=== PATIENT | female | born 1945 | race Caucasian/White ===

== ENCOUNTER 2022-06-01 14:35 | Outpatient (CLI) | payer MEDICARE, BC, SELFPAY ==
[2022-06-01 10:50] LABS: Vitamin D 25 Hydroxy* 44 ng/mL (30-80)
== END 2022-06-01 14:36 | disposition home or self-care (01) ==
PROVIDERS: PCP Internal Medicine; Visit Provider Internal Medicine
DX: E03.9 Hypothyroidism, unspecified (principal); E55.9 Vitamin D deficiency, unspecified
CPT/HCPCS: 82306; 84443

== ENCOUNTER 2022-07-03 11:00 | Outpatient (CLI) | payer MEDICARE, BC, SELFPAY ==
--- OUTSIDE RECORDS SUMMARY | 2022-07-03 11:04 | XMS_ITS | Clinical Summary ---
:1945 Author Organization [facility] [place] [address] Care Team Providers Name Role Phone Falguni Baptiste MD Primary Care Provider Allergies Active Allergy Reactions Severity Noted Date Comments Clindamycin Nausea Only, Nausea Low 03/29/2009 And Vomiting Erythromycin Nausea Only Low 03/29/2009 Other reaction( s): Nausea Morphine Nausea Only High 03/29/2009 Other reaction( s): Nausea & Vomiti ng Penicillins *Unknown - Childhood 03/29/2009 Reacted as child. Rxn Penicillin V *Unknown - Childhood Low 05/03/2021 Rxn Sulfa (Sulfonamide Other - Describe In Low 03/29/2009 Re d all over body. Antibiotics) Comment Field Other reaction (s): Red Skin & Itch ing Tramadol Nausea Only High 03/29/2009 Other reaction( s): Nausea & Vomiti ng Medications Medication Sig Dispensed Refills Start Date End Date Status METROGEL 1 % 0 03/29/2009 Active TOPICAL CALCIUM WITH 0 03/29/2009 Active VITAMIN D 600 MG-400 UNIT TAB SUMATRIPTAN 100 MG As needed 0 03/29/2009 Active TAB MULTIPLE VITAMIN daily 0 03/29/2009 Ac tive TAB FLUoxetine 0 07/18/2021 Active (PROZAC) 20 mg capsule levothyroxine 0 08/07/2021 Activ e (SYNTHROID) 50 mcg tablet zolpidem (AMBIEN) 0 07/20/2021 A ctive 5 mg tablet calcium Daily 0 Active carbonate/vitamin D2 (CALCIUM + VITAMIN D ORAL) albuterol HFA 0 04/26/2021 Activ e (PRO-AIR; VENTOLIN; PROVENTIL) 90 mcg/actuation inhaler betamethasone APPLIED TO 0 12/06/2021 Acti ve valerate HAIRLESS (VALISONE) 0.1 % VULVAR SKIN cream NEEDED gabapentin Take 1 30 Capsule 11 06/12/2022 Active (NEURONTIN) 300 mg Capsule (300 capsuleIndications mg) by mouth : Lumbar 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 With food. gabapentin Take 1 30 Capsule 2 02/01/2022 Discont inued (NEURONTIN) 300 mg Capsule (300 2 (Reorder capsuleIndications mg) by mouth (E-cancel not : Lumbar facet at bedtime. sen t)) arthropathy meloxicam 15 mg Take 1 Tablet 30 Tablet 2 02/01/2022 Discontinued tabletIndications: (15 mg) by 2 (Reorder Lumbar facet mouth once (E-can candice not arthropathy daily. With sent)) food. Active Problems Problem Noted Date Sensorineural hearing loss, unilateral 04/21/2009 Encounters Date Type Specialty Care Team Description 06/09/2022 Telephone Alexander Nick, Letter 04/20/2022 Office Visit Alexander Nick, Musculo skeletal Problem (Follow up back pain ) 04/20/2022 Travel 04/14/2022 Refill Alexander Nick, Refill Request (Meloxicam) from Last 3 Months Social History Tobacco Use Types Packs/Day Years Used Date Never Smoker Smokeless Tobacco: Never Used Alcohol Use Standard Drinks/Week Comments Yes 0 (1 standard drink = 0.6 oz pure alcoho l) occas Sex Assigned at Date Recorded Not on file Obstetrics History Last Filed Vital Signs Vital Sign Reading Time Taken Comments Blood Pressure 126/72 04/20/2022 10:30 AM CDT Pulse 73 04/20/2022 10:30 AM CDT Temperature 36.7 ??C (98 ??F) 04/20/2022 10:30 AM CDT Respiratory Rate 14 05/03/2016 8:33 AM CDT Oxygen Saturation 98% 04/20/2022 10:30 AM CDT Inhaled Oxygen Concentration - - Weight 64.8 kg (142 lb 12.8 oz) 02/01/2022 2:07 PM CDT Height - - Body Mass Index - - Plan of Treatment Health Maintenance Due Date Last Done Comments Tdap 1954 Depression screening for age 12+ 1955 BMI (ht and wt on same day) for 1961 age 18+ Hepatitis C screening for age 0904/11/1961 18-79 Tetanus booster 1963 Zoster (shingles) series for age 0904/11/1993 50+ (1 of 2) DEXA/DXA scan for age 65+ 2008 Medicare Wellness for age 65+ 2008 Pneumococcal series for age 65+ (1 2008 - PCV) Influenza for age 65+ 03/30/2022 COVID-19 vaccine series Completed 04/17/2022, 11/15/2021, 05/05/2021, Additional history exists Results Not on filefrom Last 3 Months Insurance Payer Benefit Plan / Subscriber ID Effective Dates Phone Addre ss Type Group MEDICARE PART B MEDICARE PART B [id number] 2008-Presen ATTN: CLAIMS - HB USE ONLY HB ONLY t [address] [place] [address] MEDICARE PART A MEDICARE PART A [id number] 2008-Presen ATTN: CLAIMS - HB USE ONLY HB ONLY t [address] [place] [address] BLUE CROSS MR BLUE CROSS [id number] 2016-Presen [address] [address] [place], [place] ONLY [id number] BLUE CROSS BLUE CROSS [id number] 2016-[place]en [address] [address] [place], [place] [id number] Care Teams Motor Tester Relationship Specialty Start Date End Date Falguni Baptiste MD PCP - General 04/02/09
--- NOTE | 2022-07-03 11:30 | CRLHL7_ITS ---
For Patients: As a result of the Century Cures Act, medical imaging exams and procedure reports are released immediately into your electronic medical record. You may view this report before your referring provider. If you have questions, please contact your health care provider. BILATERAL SCREENING MAMMOGRAM WITH COMPUTER-AIDED DETECTION AND TOMOSYNTHESIS TECHNIQUE: CC and MLO views were obtained. These mammographic images have been obtained using full-field digital technique. These mammographic images were interpreted with the benefit of computer-aided detection. Breast tomosynthesis was used in this interpretation. COMPARISON FILM: 05/12/21, 04/06/20, 08/02/18. FINDINGS: The breasts are heterogeneously dense, which may obscure small masses. IMPRESSION: There is no radiographic evidence for malignancy. ASSESSMENT: BI-RADS Category 1: Negative RECOMMENDATION: Routine screening mammogram in 1 year. A lay language report of this examination will be provided to the patient. DRAKE HERNANDEZ M.D. Diagnostic Radiologist [email or web address] Transcribed: 07/04/2022, 6:[address]/Dictated by: Drake Hernandez MD @ 07/04/2022 8:34:00 AM (Electronically Signed)
== END 2022-07-03 11:01 | disposition home or self-care (01) ==
LOC: MAMMO 11:02
PROVIDERS: PCP Internal Medicine; Visit Provider Internal Medicine
DX: Z12.31 Encounter for screening mammogram for malignant neoplasm of breast (principal); R92.2 Inconclusive mammogram
CPT/HCPCS: 77063; 77067

== ENCOUNTER 2022-09-15 13:16 | Outpatient (CLI) | payer MEDICARE, BC, SELFPAY ==
--- NOTE | 2022-09-15 13:45 | MR_ITS ---
[address] [address] Phone:?[phone] Fax:?[phone] Referring Physician Information: Jarrell Wilkes M.D. [address] [facility] [address] Phone:?[phone] Fax:?[phone] Patient:?Veronica Aparicio D.O.B:?1945 Sex:?Female Phone:?[phone] [facility] MRN:?[id number] Exam Date:?09/15/2022 ? EXAM: MRI OF THE RIGHT SHOULDER CLINICAL INFORMATION: The patient is a 77-year-old with right shoulder pain. Evaluate for rotator cuff tear. PRIOR SURGERY: The patient has a history of prior surgery to the region. COMPARISON STUDIES: Comparison is made to the prior MRI examination dated 05/27/2002. TECHNICAL INFORMATION: Using a 1.5T MR scanner and a localizing shoulder surface coil: 3.0 mm?coronal obliques: PD, T2, STIR 3.0 mm?sagittal obliques: PD, T2 3.0 mm?axials: PD, T2 FINDINGS: Articular/Extraarticular collections: Effusion: Mild. Subacromial/subdeltoid: Minimal fluid is seen within the subacromial/subdeltoid bursa. Subcoracoid: No evidence for bursitis. Osseous structures: Proximal humerus: Imaging of the proximal humerus demonstrates postsurgical changes, in keeping with prior rotator cuff repair and prior biceps tenodesis. No definite evidence for fracture of the greater or lesser tuberosity regions can be seen. There is no evidence for Hill-Sachs or reverse Hill-Sachs lesion. Benign-appearing cystic changes within the greater tuberosity region are noted on coronal series 4 image 14. Glenoid: No acute bony abnormality of the glenoid fossa or glenoid neck can be seen. Acromioclavicular joint: There is evidence for prior acromioplasty and distal clavicular resection. Coracoacromial arch: Acromion morphology: Type I. No evidence for os acromiale. Acromiohumeral space: Moderately narrowed. Coracohumeral space: Within normal limits. Rotator cuff and deltoid: Supraspinatus: Tendinosis and/or postsurgical changes of the supraspinatus and be seen. There is no well-defined full-thickness tearing or retraction. No atrophic changes of the supraspinatus muscle belly are identified. Infraspinatus: Tendinosis and/or postsurgical changes of the infraspinatus can be seen. There is no evidence for full or partial-thickness tearing. No atrophic changes of the infraspinatus muscle belly are present. Teres minor: No evidence for tendinosis, tearing, or associated muscle belly atrophy. Subscapularis: There is attenuation of the subscapularis, in keeping with chronic high-grade partial-thickness tearing. Atrophic changes of the subscapularis muscle belly are noted. Deltoid: No evidence for strain or tearing. Biceps tendon: Evidence for prior biceps tenodesis can be seen. The biceps tendon appears intact distal to the tenodesis site. Glenohumeral joint and labrum: Articular Cartilage: Chondromalacia and chondral thinning can be seen along the articular surfaces of the glenohumeral articulation. No definite osteoarthritic changes are present. Labrum: The anterior, posterior, superior, and inferior portions of the labrum appear intact. No evidence for paralabral ganglion cyst formation can be seen. Capsular Soft Tissues: No definite capsular abnormalities of the glenohumeral joint are seen. No evidence for capsular tearing is present and there are no MR signs of adhesive capsulitis. CONCLUSION: 1. Tendinosis and/or postsurgical changes of the supraspinatus and infraspinatus tendons. No definite full-thickness tearing or retraction can be seen. 2. Attenuation of the subscapularis tendon, in keeping with chronic high-grade partial-thickness tearing. Associated muscle belly atrophy can be seen. 3. Status post biceps tenodesis. 4. Evidence for prior acromioplasty and distal clavicular resection can be seen. The acromiohumeral distance is moderately narrowed. 5. Chondromalacia and chondral thinning along the articular surfaces of the glenohumeral articulation. 6. Glenohumeral joint effusion. AEC Electronically signed on 09/15/2022 3:23:00 PM by Yayo Green M.D.
== END 2022-09-15 13:17 | disposition home or self-care (01) ==
LOC: MRI 13:17
PROVIDERS: PCP Internal Medicine; Visit Provider Orthopaedic Surgery
DX: M75.101 Unspecified rotator cuff tear or rupture of right shoulder, not specified as traumatic (principal); M25.511 Pain in right shoulder; M94.211 Chondromalacia, right shoulder; M25.411 Effusion, right shoulder
CPT/HCPCS: 73221

== ENCOUNTER 2023-06-07 08:29 | Outpatient (CLI) | payer MEDICARE, BC, SELFPAY | END 2023-06-07 08:30 | disposition home or self-care (01) | LOC: NFLDREF 06-08 11:57 | PROVIDERS: PCP Internal Medicine; Referring Provider Internal Medicine; Visit Provider Internal Medicine | DX: Z00.00 Encounter for general adult medical examination without abnormal findings (principal); E03.9 Hypothyroidism, unspecified; M85.80 Other specified disorders of bone density and structure, unspecified site; G93.5 Compression of brain; I35.1 Nonrheumatic aortic (valve) insufficiency | CPT/HCPCS: 82306; 84443 ==

== ENCOUNTER 2023-08-06 12:32 | Outpatient (CLI) | payer MEDICARE, BC, SELFPAY ==
--- OUTSIDE RECORDS SUMMARY | 2023-08-06 12:36 | XMS_ITS | Clinical Summary ---
Author Name Unknown Organization [facility] Address [place], [place] [address] Care Team Providers Care Spar Machine Operator Helper Name Role Phone Falguni Baptiste MD Primary Care Provider [phone]- [phone] Allergies Active Allergy Reactions Criticality Noted Date Comments Clindamycin Nausea Only,Nausea And Vomiting Low 03/29/2009 Erythromycin Nausea Only Low 03/29/2009 Other reaction(s): Nausea Morphine Nausea Only High 03/29/2009 Other reaction(s): Nausea & Vomiting Penicillins *Unknown - Childhood Rxn 03/29/2009 Reacted as child. Penicillin V *Unknown - Childhood Rxn Low 05/03/2021 Sulfa (Sulfonamide Antibiotics) Other - Describe In Comment Field Low 03/29/2009 Red all over body. Other reaction(s): Red Skin & Itching Tramadol Nausea Only High 03/29/2009 Other reaction(s): Nausea & Vomiting Medications Medication Sig Dispensed Refills Start Date End Date Status METROGEL 1 % TOPICAL 0 03/29/2009 Acti ve CALCIUM WITH VITAMIN D 600 MG-400 UNIT TAB 0 03/29/2009 Active SUMATRIPTAN 100 MG TAB As needed 0 03/29/2009 Active MULTIPLE VITAMIN TAB daily 0 03/29/2009 Acti ve FLUoxetine (PROZAC) 20 mg capsule 0 07/18/2021 Active levothyroxine (SYNTHROID) 50 mcg tablet 0 08/07/2021 Active zolpidem (AMBIEN) 5 mg tablet 0 07/20/2021 Active calcium carbonate/vitamin D2 (CALCIUM + VITAMIN D ORAL) Daily 0 Active albuterol HFA (PRO-AIR; VENTOLIN; PROVENTIL) 90 mcg/actuation inhaler 0 04/26/2021 Active betamethasone valerate (VALISONE) 0.1 % cream APPLIED TO HAIRLESS VULVAR SKIN NEEDED 0 12/06/2021 Active gabapentin (NEURONTIN) 300 mg capsuleIndications:L umbar facet arthropathy Take 1 Capsule (300 mg) by mouth at bedtime. 60 Capsule 5 01/18/2023 Active meloxicam 15 mg tabletIndications:Sindy mbar facet arthropathy TAKE 1 TABLET (15 MG) BY MOUTH ONCE DAILY. WITH FOOD. 30 Tablet 2 02/22/2023 Active Active Problems Problem Noted Date Diagnosed Date Sensorineural hearing loss, unilateral 9 Social History Tobacco Use Types Packs/Day Years Used Date Smoking Tobacco: Never Smokeless Tobacco: Never Tobacco Cessation:Counseling Given: Yes Alcohol Use Standard Drinks/Week Comments Yes 0 (1 standard drink = 0.6 oz pur e alcohol) occas Social Connections Answer Date Recorded Frequency of Communication with Friends and Fami ly Not on file 08/08/2021 Financial Resource Strain Answer Date R ecorded Difficulty of Paying Living Expenses Not on file 08/08/2021 Difficulty of Paying Living Expenses Not on file 08/08/2021 Sex and Gender Information Value Date Recorded Sex Assigned at Not on file Gender Identity Not on file Sexual Orientation Not on file Obstetrics History Last Filed Vital Signs Vital Sign Reading Time Taken Comments Blood Pressure 127/70 01/18/2023 11:16 AM CDT Pulse 72 01/18/2023 11:16 AM CDT Temperature 36.8 ??C (98.2 ??F) 01/18/2023 11:16 AM C DT Respiratory Rate 14 05/03/2016 8:33 AM CDT Oxygen Saturation 96% 01/18/2023 11:16 AM CDT Inhaled Oxygen Concentration - - Weight 67.6 kg (149 lb) 01/18/2023 11:16 AM CDT shoes on Height - - Body Mass Index - - Plan of Treatment Upcoming Encounters Date Type Department Care Team (Late st Contact Info) Description 08/06/2023 1:00 PM MAPPING TECHNICIAN Orders Only [facility] [address] [place] [address] Health Maintenance Due Date Last Done Comments Tdap 1954 Depression screening for age 12+ 1955 BMI (ht and wt on same day) for age 18+ 1961 Tetanus booster 1963 Zoster (shingles) series for age 50+ (1 of 2) 1993 DEXA/DXA scan for age 65+ 2008 Medicare Wellness for age 65+ 2008 Pneumococcal series for age 65+ (1 of 1 - PCV) 2008 Influenza for age 65+ 03/30/2023 COVID-19 vaccine series (2022-24 season) 2023 02/27/2023, 04/17/2022, 11/15/2021, Additional history exists Care Teams Spar Machine Operator Helper Relationship Specialty Start Date End Date Falguni Baptiste MD PCP - General 04/02/09
== END 2023-08-06 12:33 | disposition home or self-care (01) ==
LOC: RAD 12:34
PROVIDERS: PCP Internal Medicine; Visit Provider Internal Medicine
DX: I35.1 Nonrheumatic aortic (valve) insufficiency (principal); I51.7 Cardiomegaly
CPT/HCPCS: 93306

== ENCOUNTER 2023-09-06 12:45 | Outpatient (CLI) | payer MEDICARE, BC, SELFPAY ==
--- OUTSIDE RECORDS SUMMARY | 2023-09-06 12:47 | XMS_ITS | Clinical Summary ---
Author Name Unknown Organization [facility] Address [place], [place] [address] Care Team Providers Care Fly Maker Name Role Phone Falguni Baptiste MD Primary Care Provider [phone]- [phone] Allergies Active Allergy Reactions Criticality Noted Date [...] Diagnosed Date Sensorineural hearing loss, unilateral 9 Encounters Date Type Department Care Team Description 08/06/2023 1:00 PM AIRCRAFT INSTRUMENT REPAIRER Orders Only [facility] & [address] [address] 2 scans: (2-Ord) ECHO TTE COMPLETE WO CONTRAST ([id number]) 08/06/2023 Travel from Last 3 Months Social History Tobacco [...] for age 65+ 03/30/2023 COVID-19 vaccine series (2022- season) 2023 02/27/2023, 04/17/2022, 11/15/2021, Additional history exists Procedures Procedure Name Priority Date/Time Associated Diagnosis Comments ECHO TTE COMPLETE WO CONTRAST Routine 08/06/2023 1:52 PM AIRCRAFT INSTRUMENT REPAIRER Nonrheumatic aortic (valve) insufficiency from Last 3 Months Results * ECHO TTE COMPLETE WO CONTRAST (08/06/2023 1:52 PM AIRCRAFT INSTRUMENT REPAIRER) AORTIC VALVE MEAN PG 6 mmHg EJECTION FRACTION 75 % PEAK TR VELOCITY 2.3 m/s LVEDD 4.4 cm EJECTION FRACTION 65 - 70% Anatomical Region Laterality Modality Ultrasound 08/06/2023 1:09 PM AIRCRAFT INSTRUMENT REPAIRER Narrative 08/06/2023 4:39 PM AIRCRAFT INSTRUMENT REPAIRER ECHOCARDIOGRAM VERONICA Sandra BERNARD ? Accession#: ?? [id number] : ?1945 78 years Study Date: ?? 08/06/2023 1:09:01 PM Gender: F ?BP: ? 127/70 mmHg Height: 157.00 cm ?BSA: ?1.69 m? ? ? Weight: 68.00 kg ? Tech: ? MTS ? Referring MD: FALGUNI BAPTISTE Site: ? [facility] Reading Location: MOBILE OP Patient Location: Outpatient. Procedure: 2D, Color Doppler and Spectral Doppler. Indication for study: Nonrheumatic aortic (valve) insufficiency Cardiac Rhythm: Regular.Study quality: Good. Final Impressions: 1. Normal LV size, normal global systolic function with an estimated EF of 65 - 70%. 2. Right ventricular cavity size is normal, global systolic RV function is normal. 3. Mildly enlarged left atrium. 4. The aortic valve is trileaflet and sclerotic, no stenosis and mild regurgitation. Comparison Compared to prior exam of 04/09/2020, there has been no significant change. Chamber Sizes and Function Normal left ventricular size, borderline wall thickness, normal global systolic function with an estimated EF of 65 - 70%. Left atrial size is mildly enlarged. Left atrial pressure is normal. Right ventricular cavity size is normal, global systolic RV function is normal. RV wall thickness is normal. The right atrium is normal. Right atrial volume index is 18 ml/m? ? ?. Right atrial area is 12 cm? ? ?. The pulmonary artery is of normal size and origin. The sinus of Valsalva is normal sized. The ascending aorta is normal sized. Valves, RV Pressures and Diastolic Function The aortic valve is trileaflet and sclerotic, no stenosis and mild regurgitation. The mitral valve is normal in structure, trace mitral regurgitation. Indeterminate pattern of LV diastolic filling. The tricuspid valve is normal in structure. Tricuspid regurgitation is trace regurgitation. The tricuspid regurgitant velocity is 2.3 m/s, the estimated right ventricular systolic pressure is 21 mmHg plus right atrial pressure. The pulmonic valve is normal. No pulmonary regurgitation. Masses, Effusion, Shunts There is no pericardial effusion. The inferior vena cava is normal sized, respiratory size variation greater than 50%. No left to right shunting was detected by limited color flow Doppler interrogation of the interatrial septum. MEASUREMENTS AND CALCULATIONS 2-D Measurements and LV Function: LVID (d) 4.4 cm LV FS% (2D) ?? 48 % LVID (s) 2.3 cm LVOT diameter 2.1 cm IVS (d) ??1.1 cm HR ?67 bpm LVPW (d) 1.1 cm LA Vol index ??36 ml/m2 Ao Sinus 3.1 cm RA Vol index ??18 ml/m2 Asc Ao ?? 3.8 cm RA area ? 12 cm? ? ? LA ? 4.4 cm RV Max 4C (d) 3.4 cm Diastology: Mitral ?Tissue Doppler ?Pulmonary veins E Peak 0.6 m/s ??e', Septum ? 0.05 m/s Pulm s ?74.4 cm/s A Peak 1.1 m/s ??e', Lateral ?0.07 m/s Pulm d ?35.0 cm/s E/A ?0.6 ?E/e' Average ?? 10.63 ?Pulm s/d ratio ??2.13 DT ? 233 msec Aortic Valve: Vmax ? 1.6 m/s ??FARHAD (V) ?? 2.38 cm? AI P 1/2 703 msec VTI ?0.41 m ?? FARHAD (I) ?? 2.19 cm? ? ? LVOT V max 1.1 m/s ??Max PG ?11 mmHg LVOT VTI ?? 0.25 m ?? Mean PG ?? 6 mmHg SV ? 89 ml ?Dim Index 0.62 SV index ?? 53 ml/m? ? ? CO ?6.0 l/min ?CI ?3.5 l/min/m? ? ? Mitral Valve: MVA ?3.3 cm? ? ? MV P 1/2 68 msec Tricuspid Valve and estimated PA pressures: TR Vmax 2.3 m/s TAPSE 2.1 cm TR maxG 21 mmHg . This study was interpreted by an [facility] accredited facility. CC: HIM (med records) [facility]. ??Final ?? Procedure Note Nikolas Roca MD - 08/06/2023 ECHOCARDIOGRAM VERONICA APARICIO : 1945 78 years Study Date: 08/06/2023 1:09:01 PM Gender: F BP: 127/70 mmHg Height: 157.00 cm BSA: 1.69 m? ? ? Weight: 68.00 kg Tech: [facility] Referring MD: FALGUNI BAPTISTE Site: [facility] Reading Location: MOBILE OP Patient Location: Outpatient. Procedure: 2D, Color Doppler and Spectral Doppler. Indication for study: Nonrheumatic aortic (valve) insufficiency Cardiac Rhythm: Regular.Study quality: Good. Final Impressions: 1. Normal LV size, normal global systolic function with an estimated EFof 65 - 70%. 2. Right ventricular cavity size is normal, global systolic RV functionis normal. 3. Mildly enlarged left atrium. 4. The aortic valve is trileaflet and sclerotic, no stenosis and mildregurgitation. Comparison Compared to prior exam of 04/09/2020, there has been no significantchange. Chamber Sizes and Function Normal left ventricular size, borderline wall thickness, normal globalsystolic function with an estimated EF of 65 - 70%. Left atrial size ismildly enlarged. Left atrial pressure is normal. Right ventricular cavitysize is normal, global systolic RV function is normal. RV wall thicknessis normal. The right atrium is normal. Right atrial volume index is 18ml/m? ? ?. Right atrial area is 12 cm? ? ?. The pulmonary artery is of normalsize and origin. The sinus of Valsalva is normal sized. The ascendingaorta is normal sized. Valves, RV Pressures and Diastolic Function The aortic valve is trileaflet and sclerotic, no stenosis and mildregurgitation. The mitral valve is normal in structure, trace mitralregurgitation. Indeterminate pattern of LV diastolic filling. Thetricuspid valve is normal in structure. Tricuspid regurgitation is traceregurgitation. The tricuspid regurgitant velocity is 2.3 m/s, theestimated right ventricular systolic pressure is 21 mmHg plus right atrialpressure. The pulmonic valve is normal. No pulmonary regurgitation. Masses, Effusion, Shunts There is no pericardial effusion. The inferior vena cava is normal sized,respiratory size variation greater than 50%. No left to right shunting wasdetected by limited color flow Doppler interrogation of the interatrialseptum. MEASUREMENTS AND CALCULATIONS 2-D Measurements and LV Function: LVID (d) 4.4 cm LV FS% (2D) 48 % LVID (s) 2.3 cm LVOT diameter 2.1 cm IVS (d) 1.1 cm HR 67 bpm LVPW (d) 1.1 cm LA Vol index 36 ml/m2 Ao Sinus 3.1 cm RA Vol index 18 ml/m2 Asc Ao 3.8 cm RA area 12 cm? ? ? LA 4.4 cm RV Max 4C (d) 3.4 cm Diastology: Mitral Tissue Doppler Pulmonary veins E Peak 0.6 m/s e', Septum 0.05 m/s Pulm s 74.4 cm/s A Peak 1.1 m/s e', Lateral 0.07 m/s Pulm d 35.0 cm/s E/A 0.6 E/e' Average 10.63 Pulm s/d ratio 2.13 DT 233 msec Aortic Valve: Vmax 1.6 m/s FARHAD (V) 2.38 cm? ? ? AI P 1/2 703 msec VTI 0.41 m FARHAD (I) 2.19 cm? ? ? LVOT V max 1.1 m/s Max PG 11 mmHg LVOT VTI 0.25 m Mean PG 6 mmHg SV 89 ml Dim Index 0.62 SV index 53 ml/m? ? ? CO 6.0 l/min CI 3.5 l/min/m? ? ? Mitral Valve: MVA 3.3 cm? ? ? MV P 1/2 68 msec Tricuspid Valve and estimated PA pressures: TR Vmax 2.3 m/s TAPSE 2.1 cm TR maxG 21 mmHg . This study was interpreted by an [facility] accredited facility. CC: [facility] ([facility]) [facility]. Final Falguni Baptiste MD ECHO ORD from Last 3 Months Care Teams Fly Maker Relationship Specialty Start Date End Date Falguni Baptiste MD PCP - General 04/02/09
--- NOTE | 2023-09-06 13:20 | CRLHL7_ITS ---
For Patients: As a result of the Century Cures Act, medical imaging exams and procedure reports are released immediately into your electronic medical record. You may view this report before your referring provider. If you have questions, please contact your health care provider. BILATERAL SCREENING MAMMOGRAM WITH COMPUTER-AIDED DETECTION AND TOMOSYNTHESIS TECHNIQUE: CC and MLO views were obtained. These mammographic images have been obtained using full-field digital technique. These mammographic images were interpreted with the benefit of computer-aided detection. Breast Tomosynthesis was used in this interpretation. COMPARISON FILM: 07/03/22, 05/12/21, 04/06/20. FINDINGS: The breasts are heterogeneously dense, which may obscure small masses. IMPRESSION: There is no radiographic evidence for malignancy. ASSESSMENT: BI-RADS Category 1: Negative RECOMMENDATION: Routine screening mammogram in 1 year. A lay language report of this examination will be provided to the patient. Drake Solano M.D. Diagnostic Radiologist [email or web address] SP/Dictated by: Drake Solano MD @ 09/07/2023 8:30:00 AM (Electronically Signed)
== END 2023-09-06 12:46 | disposition home or self-care (01) ==
LOC: MAMMO 12:46
PROVIDERS: PCP Internal Medicine; Visit Provider Internal Medicine
DX: Z12.31 Encounter for screening mammogram for malignant neoplasm of breast (principal); R92.2 Inconclusive mammogram
CPT/HCPCS: 77063; 77067

== ENCOUNTER 2024-06-20 08:28 | Outpatient (CLI) | payer BC, MEDICARE, SELFPAY ==
--- OUTSIDE RECORDS SUMMARY | 2024-06-22 14:38 | XMS_ITS | Clinical Summary ---
Author Organization [employer] [facility] Address [place], [place] [address] Care Team Providers Care Promotions Executive Name Role Phone Falguni Baptiste MD Primary Care Provider [phone]- [phone] Allergies Active Allergy Reactions Criticality Noted Date [...] Acti ve FLUoxetine (PROZAC) 20 mg capsule 07/18/2021 Active levothyroxine (SYNTHROID) 50 mcg tablet 08/07/2021 Active zolpidem (AMBIEN) 5 mg tablet 07/20/2021 Active calcium carbonate/vitamin D2 (CALCIUM + VITAMIN D ORAL) Daily Active albuterol HFA (PRO-AIR; VENTOLIN; PROVENTIL) 90 mcg/actuation inhaler 04/26/2021 Active betamethasone valerate (VALISONE) 0.1 % cream APPLIED TO HAIRLESS VULVAR SKIN NEEDED 12/06/2021 Active gabapentin (NEURONTIN) 300 mg capsuleIndications:L [...] Encounters Date Type Department Care Team Description 06/06/2024 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 Office Visit [facility] [address], [place] [id number] Silvestre Raygoza, AuD Hearing Aid 06/06/2024 Travel from Last 3 Months Social History [...] 70 01/18/2023 11:16 AM CDT Temperature 36.8 C (98.2 F) 01/18/2023 11:16 AM CDT Respiratory Rate 14 05/03/2016 8:33 [...] 65+ (1 of 1 - PCV) 2008 RSV vaccine for adults or (1 - 1-dose 75+ series) 2018 Influenza for age 65+ 03/30/2024 COVID-19 vaccine series Completed 04/29/20 24, 06/11/2023, 02/27/2023, Additional history exists Care Teams Promotions Executive Relationship Specialty Start Date End Date Falguni Baptiste MD PCP - General 04/02/09
== END 2024-06-20 08:29 | disposition home or self-care (01) ==
LOC: NFLDREF 06-22 14:36
PROVIDERS: PCP Internal Medicine; Referring Provider Internal Medicine; Visit Provider Internal Medicine
DX: E03.9 Hypothyroidism, unspecified (principal); M85.80 Other specified disorders of bone density and structure, unspecified site
CPT/HCPCS: 82306; 84443

== ENCOUNTER 2024-07-02 13:43 | Outpatient (CLI) | payer MEDICARE, BC, SELFPAY ==
--- OUTSIDE RECORDS SUMMARY | 2024-07-02 13:50 | XMS_ITS | Clinical Summary ---
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
--- NOTE | 2024-07-02 14:00 | CRLHL7_ITS ---
For Patients: As a result of the Century Cures Act, medical imaging exams and procedure reports are released immediately into your electronic medical record. You may view this report before your referring provider. If you have questions, please contact your health care provider. DXA BONE MINERAL DENSITY STUDY Reason for exam: Osteopenia. Current height (in): 61. Weight (lb): 140. Menopause age: 53. Ethnicity: White. 1. Have you had a previous hip or vertebral fracture? No. 2. Have you had any fractures during your adult life which did not result from significant trauma (e.g., auto accident)? No. 3. Did either of your parents have a hip fracture? Yes. 4. Do you smoke? No. 5. Have you ever taken Glucocorticoids? No. 6. Do you have rheumatoid arthritis? No. 7. Do you have secondary osteoporosis? No. 8. Do you drink 3 or more alcoholic drinks per day? No. 9. Are you being treated for osteoporosis? No. 10. Have you ever taken any of the following medications: Actonel, Evista, Fosamax, Miacalcin, Reclast, Boniva, Forteo, HRT (i.e. estrogen/hormone therapy), Protelos, Prolia, Vitamin D, Calcium, other ??? please specify. ANSWER: Yes, Fosamax, HRT (i.e. estrogen/hormone therapy), vitamin D and calcium. 11. Do you have any of the following medical conditions: Anorexia or bulimia, asthma or emphysema, end stage renal disease, hyperparathyroidism, any seizure disorders, cancer, inflammatory bowel diseases, hysterectomy, other ??? please specify. ANSWER: Yes, asthma or emphysema and hysterectomy. 12. What was your maximum height (inches)? 63. 13. Do you perform weight bearing exercise regularly? Yes. 14. Do you regularly consume dairy products? Yes. 15. Do you drink caffeinated beverages? No. 16. At what age did your period start? 13. 17. Are you premenopausal? No. 18. How many full term pregnancies have you had? 2. 19. Have you ever missed your period for more than 6 months in a row (not including or menopause)? No. TECHNIQUE: Bone mineral density study was performed using the [employer]. FINDINGS: The results of the study expressed as bone mineral density (BMD) are as follows: Lumbar spine L1 to L3: BMD: 0.954 g/cm2. T-score: -0.6. Z-score: 2.1. Neck Left: BMD: 0.617 g/cm2. T-score: -2.1. Z-score: 0.3. Right: BMD: 0.582 g/cm2. T-score: -2.4. Z-score: -0.0. Total Left: BMD: 0.734 g/cm2. T-score: -1.7. Z-score: 0.4. Right: BMD: 0.664 g/cm2. T-score: -2.3. Z-score: -0.2. IMPRESSION: Osteopenia. *Comparison exams done prior to 12/2019 were performed on different unit, [employer]. COMPARISON: Compared with scan of 05/12/2021, the bone mineral density has decreased by 1.7 percent at the spine and decreased by 3.3 percent at the hip. Compared with scan of 08/07/2016, the bone mineral density has increased by 10.3 percent at the spine and decreased by 0.8 percent at the hip. FRAX 10-year Fracture Risk Major Osteoporotic Fracture: 34 percent Hip Fracture: 23 percent Reported Risk Factors: [place] () Neck BMD=0.582, BMI=26.5, parental fracture Shital Cervantes M.D. Diagnostic Radiologist [email or web address] SP/Dictated by: Shital Cervantes MD @ 07/04/2024 8:57:00 AM (Electronically Signed)
== END 2024-07-02 13:44 | disposition home or self-care (01) ==
LOC: RAD 13:48
PROVIDERS: PCP Internal Medicine; Visit Provider Internal Medicine
DX: M85.88 Other specified disorders of bone density and structure, other site (principal); M85.89 Other specified disorders of bone density and structure, multiple sites
CPT/HCPCS: 77080

== ENCOUNTER 2024-09-09 13:28 | Outpatient (CLI) | payer MEDICARE, BC, SELFPAY | END 2024-09-09 13:29 | disposition home or self-care (01) | PROVIDERS: PCP Internal Medicine; Visit Provider Internal Medicine | DX: Z12.31 Encounter for screening mammogram for malignant neoplasm of breast (principal) | CPT/HCPCS: 77063; 77067 ==

== ENCOUNTER 2025-06-23 09:06 | Outpatient (CLI) | payer MEDICARE, BC, SELFPAY | END 2025-06-23 09:07 | disposition home or self-care (01) | LOC: NFLDREF 06-29 03:50 | PROVIDERS: PCP Internal Medicine; Referring Provider Internal Medicine; Visit Provider Internal Medicine | DX: M85.80 Other specified disorders of bone density and structure, unspecified site (principal); E03.9 Hypothyroidism, unspecified; E78.5 Hyperlipidemia, unspecified; Z13.6 Encounter for screening for cardiovascular disorders | CPT/HCPCS: 80048; 80061; 82306; 84439; 84443 ==